=== PATIENT | male | born 1950 | race Caucasian/White ===

== ENCOUNTER 2016-12-25 13:03 | Emergency (ER) | payer OTHER ==
--- NOTE | ~2016-12-25 | CT2 ---
[facility] A Service of [facility] RADIOLOGY TEXT RESULTS PATIENT: GÓMEZ NEAL LOCATION: SED : 46 UNIT #: [id number] AGE: [address]: Khanh Ochoa MD SEX: M ORDER DR: [id number] [place] [id number] E MR#: [id number] Acc #: [id number] NAME: GÓMEZ NEAL : 1950 SEX: M STUDY DATE/TIME: 12/25/2016 15:16 UNIT: SED ROOM: STUDY DESCRIPTION: CT Abd and Pelv W Cont Attending Physician: Khanh Ochoa M.D. Ordering Physician: Khanh Ochoa M.D. Primary Care Physician: Ray Prasad M.D. MEDICAL IMAGING REPORT This report is preliminary unless electronic signature is present. EXAM CT abdomen and pelvis, 12/25 INDICTIONS Abdominal pain, nausea and cramping with diarrhea over three weeks. TECHNIQUE Axial images were obtained through the abdomen and pelvis following IV contrast administration, Multiplanar reformats were obtained. No comparison. The CT exam was performed with one or more of the following radiation dose reduction techniques: automatic exposure control, adjustment of mA and/or kV according to patient size, and iterative reconstruction. . FINDINGS ABDOMEN: There is some mild atelectasis in the right lower lobe. Gallbladder probably contains some sludge. There is a small volume of ascites. Subcentimeter hypodensities in the left hepatic lobe are likely tiny cysts. Similar lesion noted inferior right hepatic lobe. Solid organs are otherwise normal. There is a small bowel obstruction. PELVIS: Free fluid is present. There is intense inflammatory fat stranding in the pelvis. There is abnormal wall thickening in the sigmoid colon which is presumably the result of acute diverticulitis. There is an abscess sitting on the dome of the bladder with adjacent bladder wall thickening which is presumably reactive. The abscess measures about 1.6 x 2.0 x 2.0 cm. There is a second small abscess in the right lower quadrant mesentry measuring 2.5 x 2.2 x 1.6 cm. A third abscess is seen behind the small bowel loop. This one is near the midline and measures 2.3 x 1.6 x 2.3 cm. There is adjacent markedly abnormally thickened small bowel which is presumably the reason for the small bowel obstruction. Whether this is STS. [facility] A Service of [facility] RADIOLOGY TEXT RESULTS PATIENT: GÓMEZ NEAL LOCATION: SED : 46 UNIT #: [id number] AGE: [address]: Khanh Ochoa MD SEX: M ORDER DR: a primary or reactive enteritis is unknown. The appendix may also be enlarged. Th8is could be reactive. IMPRESSION 1. Multiple irregular small bowel loops in the pelvis with fairly significant inflammatory fat stranding. Additionally, the sigmoid colon is thickened with adjacent fat stranding. It is unclear if this is a primary diverticulitis with resultant reactive inflammation in the adjacent small bowel or if this is a primary small bowel abnormality with adjacent inflammation of the sigmoid colon. There are at least three small abscesses in the pelvis, none of which are amenable to percutaneous drainage. 2. There is a small bowel obstruction secondary to the inflamed loops of ileum in the right lower abdomen. 3. No clearly normal appendix is seen. If the appendix is still present, it is probably mildly dilated and fluid filled. Again, this could be a reactive finding secondary to the fairly intense inflammation in the pelvis. Acute appendicitis is not excluded. 4. Small volume of free fluid in the abdomen and pelvis. Dictated by... Navneet Jimenez Jr., M.D. THIS IS AN ELECTRONICALLY VERIFIED REPORT Navneet Jimenez Jr., M.D. at 12/25/2016 8:45 PM JENNY/marco a TD: 12/25/2016 16:06 JOB #: [id number] MEDICAL IMAGING REPORT Page 1 of 1
[~2016-12-25 13:03] MED LIST: AVAPRO150 MG PO; DYAZIDE 37.5/251 CAP PO; MEVACOR PO; ZOCOR20 MG PO; [UNRECOGNIZED DRUG - REMARK]; [UNRECOGNIZED DRUG - REMARK]
[2016-12-25 13:54] LABS: BASOPHIL% 0.2 % (0-2.5); EOSINOPHIL# 0.2 X10e3 (0-0.7); EOSINOPHIL% 1.1 % (0.0-7.0); HEMATOCRIT 40.1 % (38.0-50.0); HEMOGLOBIN 13.5 gm/dL (13.0-16.0); LYMPHOCYTE# 1.7 X10e3 (1.0-3.5); LYMPHOCYTE% 10.2 % (17.0-45.0); MEAN CELL VOLUME 89.3 FL (83-96); MEAN CORPUSCULAR HEMOGLOBIN 30.1 PG (28-34); MEAN CORPUSCULAR HGB CONC 33.7 g/dL (30-36); MEAN PLATELET VOLUME 7.9 FL (6.5-11.5); MONOCYTE# 1.5 X10e3 (0-1.0); MONOCYTE% 9.1 % (3.0-12.0); NEUTROPHIL# 13.4 X10e3 (1.5-7.1); NEUTROPHIL% 79.4 % (40-75); PLATELET COUNT 452 X10e3 (140-420); RED BLOOD COUNT 4.49 X10e (3.90-5.60); WHITE BLOOD COUNT 16.9 X10e3 (4.0-10.5)
[2016-12-25 13:55] LABS: DIFF IND NO
[2016-12-25 14:08] LABS: ALBUMIN SERUM 3.4 g/dL (3.5-5.0); BILIRUBIN, DIRECT 0.1 mg/dL (0.0-0.2); BILIRUBIN,INDIRECT 0.6 mg/dL (0.0-0.9); BILIRUBIN,TOTAL 0.7 mg/dL (0.2-2.0); BUN/CREATININE RATIO 22.3; CALCIUM SERUM 8.5 mg/dL (8.4-10.2); CREATININE SERUM 1.3 mg/dL (0.6-1.4); GLOM FILT RATE Estimated 56.1 mL/min (>60); POTASSIUM 3.2 mmol/L (3.5-5.1); PROTEIN TOTAL SERUM 7.5 g/dL (6.0-8.3)
[2016-12-25 16:16] LABS: URINE SOURCE CLEAN CATCH
[2016-12-25 16:18] LABS: URINE APPEARANCE CLEAR; URINE BILIRUBIN NEG (NEG); URINE BLOOD 1+ (NEG); URINE COLOR YELLOW; URINE GLUCOSE NEG (NORM); URINE KETONE TRACE (NEG); URINE LEUKOCYTE ESTERASE NEG (NEG); URINE NITRATE NEG (NEG); URINE PH 5.5 (5-8); URINE PROTEIN 1+ (NEG); URINE UROBILINOGEN 0.2 MG/DL (NORM)
[2016-12-25 16:19] LABS: MICRO INDICATED? YES
[2016-12-25 16:28] LABS: CULTURE INDICATED? YES; URINE BACTERIA NEG (NEG); URINE GRANULAR CAST 0-2 /[HPF]; URINE HYALINE CAST 0-2 /[HPF]; URINE MUCUS PRESENT; URINE SQUAMOUS EPITHELIAL CELL FEW /[HPF]; URINE WHITE BLOOD CELL CAST 0-2 /[HPF]
== END 2016-12-25 18:05 ==
LOC: SED 13:03
PROVIDERS: Emergency Medicine
DX: K57.32 Diverticulitis of large intestine without perforation or abscess without bleeding (principal); K56.60 Unspecified intestinal obstruction; E78.5 Hyperlipidemia, unspecified; I10 Essential (primary) hypertension; Z87.891 Personal history of nicotine dependence; Z79.899 Other long term (current) drug therapy
CPT/HCPCS: 36415; 74177; 80048; 80076; 81003; 82150; 83690; 85025; 87086; 96365; 96375; 99285; J2270; J2405; J2543; Q9967